=== PATIENT | male | born 1970 | race Caucasian/White ===

== ENCOUNTER → 2017-08-04 | Outpatient (CLI) | payer OTHER ==
[~2017-08-04] MED LIST: Colace100 MG PO; Crutch1 EACH MISC; NAPR220 PO; Percocet 5-3251 EACH PO
[2017-08-04 15:09] LABS: BASOPHILS ABSOLUTE AUTO 0.03 K/mm3 (0.00-0.23); BASOPHILS PERCENT AUTO 1 % (0-2); EOSINOPHILS ABSOLUTE AUTO 0.12 K/mm3 (0.00-0.68); EOSINOPHILS PERCENT AUTO 2 % (0-6); Hematocrit 44.9 % (37.0-53.0); Hemoglobin 15.7 g/dL (13.5-17.5); IMMATURE GRAN ABSOLUTE AUTO 0.01 K/mm3 (0.00-0.10); IMMATURE GRAN PERCENT AUTO 0 % (0-1); LYMPHOCYTES ABSOLUTE AUTO 2.18 K/mm3 (0.84-5.20); LYMPHOCYTES PERCENT AUTO 36 % (21-46); MONOCYTES ABSOLUTE AUTO 0.45 K/mm3 (0.16-1.47); MONOCYTES PERCENT AUTO 8 % (4-13); Mean Corpuscular HGB 32.7 pg (26.0-34.0); Mean Corpuscular Volume 94 fL (80-100); Mean Platelet Volume 10.2 fL (9.1-12.4); NEUTROPHILS ABSOLUTE AUTO 3.21 K/mm3 (1.96-9.15); NEUTROPHILS PERCENT AUTO 54 % (41-73); Platelet Count 213 K/mm3 (150-400); RDW Coefficient Variation 11.7 % (11.7-14.2); RDW Standard Deviation 40.5 fL (35.1-46.3)
[2017-08-04 15:42] LABS: Anion Gap 8 mmol/L (6-16); Blood Urea Nitrogen 21 mg/dL (8-24); CO2, Blood 26 mmol/L (21-32); Calcium, Blood 9.1 mg/dL (8.5-10.1); Chloride, Blood 108 mmol/L (98-108); Creatinine, Blood 0.88 mg/dL (0.60-1.20); Glomerular Filtration Rate >60 (60-); Glucose, Blood 91 mg/dL (70-99); Potassium, Blood 4.3 mmol/L (3.5-5.5); Sodium, Blood 142 mmol/L (136-145)
== END ==
LOC: LAB SHORT 14:19
PROVIDERS: Orthopaedic Surgery
DX: Z01.818 Encounter for other preprocedural examination (principal); S52.592A Other fractures of lower end of left radius, initial encounter for closed fracture
CPT/HCPCS: 36415; 80048; 85025

== ENCOUNTER 2017-08-06 12:36 | Day surgery (SDC) | payer OTHER ==
[~2017-08-06] VITALS: Ht 190.5 cm; Wt 111.5 kg
[~2017-08-06 12:36] MED LIST changes: -NAPR220 PO
[2017-08-06] MEDS ORDERED: NAPR220 PO (13:30)
== END 2017-08-06 17:55 | disposition home or self-care (01) ==
LOC: ORSCSDS 12:36
PROVIDERS: Orthopaedic Surgery
PROC: 0PSJ04Z Reposition Left Radius with Internal Fixation Device, Open Approach (ICD-10-PCS; principal; 2017-08-06 14:00)
DX: S52.572A Other intraarticular fracture of lower end of left radius, initial encounter for closed fracture (principal); W18.30XA Fall on same level, unspecified, initial encounter
CPT/HCPCS: 73110; C1713; J0171; J0690; J1100; J2250; J2405; J3010; J7120

== ENCOUNTER 2021-04-28 08:45 | Day surgery (SDC) | payer BC, OTHER ==
[~2021-04-28] VITALS: Ht 190.5 cm; Wt 110.4 kg
[~2021-04-28 08:45] MED LIST changes: +NAPR220 PO
[2021-04-28] MEDS ORDERED: LISI10 (09:02)
== END 2021-04-28 11:33 | disposition home or self-care (01) ==
LOC: ORSCSDS 08:45
PROVIDERS: Student in an Organized Health Care Education/Training Program
PROC: 0DBP8ZX Excision of Rectum, Via Natural or Artificial Opening Endoscopic, Diagnostic (ICD-10-PCS; principal; 2021-04-28 10:15)
DX: Z12.11 Encounter for screening for malignant neoplasm of colon (principal); D12.8 Benign neoplasm of rectum; K57.30 Diverticulosis of large intestine without perforation or abscess without bleeding; K64.8 Other hemorrhoids
CPT/HCPCS: 88305; J2250; J2704; J7120